=== PATIENT | male | born 1975 | race Caucasian/White ===

== ENCOUNTER → 2023-01-21 | Outpatient (CLI) | payer OTHER ==
[2023-01-21 11:45] LABS: FREE T4 1.03 ng/dl (0.89-1.76); THYROID STIM HORMONE (HS) 1.02 uIU/ml (0.550-4.780)
== END | disposition home or self-care (01) ==
LOC: LAB 10:49
PROVIDERS: ATTEND Nurse Practitioner
DX: F41.1 Generalized anxiety disorder (principal); F43.12 Post-traumatic stress disorder, chronic; F33.2 Major depressive disorder, recurrent severe without psychotic features